=== PATIENT | female | born 2000 | race Caucasian/White ===

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

== ENCOUNTER 2019-03-02 20:31 | Emergency (ER) | payer SELFPAY ==
[~2019-03-02] VITALS: Ht 149.8 cm; Wt 70.0 kg
[~2019-03-02 20:31] MED LIST changes: +ACHD5005 PO; -HYDR-3812 PO
[2019-03-02] MEDS ORDERED: NF-CIPDEC OT (21:10)
[2019-03-02] MEDS ORDERED: CEFP500T4 PO (21:10)
--- NOTE | 2019-03-02 21:11 | ED EENT ---
History of Present Illness General Chief Complaint: Ear Problems Stated Complaint: EARACHE Nursing Triage Note: C/O EARACHE SINCE YESTERDAY, "WAS REALLY BAD LAST NIGHT". TOOK IBUPROFEN FOR PAIN Allergies and Home Medications Allergies Uncoded Allergies: CONTRAST DYE (Adverse Reaction, Unknown, 01/06/16) reported by family on EMS scene ? allergy Home Medications Ferrous Sulfate 325 Mg Tablet, 325 MG PO DAILY, (Reported) Hydrocodone Bit/Acetaminophen 1 Each Tablet, 1 TAB PO Q4H PRN for PAIN-MODERATE Prescribed by: FRANCISCO MENSAH on 10/24/16 0741 Ibuprofen 600 Mg Tablet, 600 MG PO Q6H PRN for CRAMPS Prescribed by: FRANCISCO MENSAH on 10/24/16 0741 Past [place]-Rl[place]-Ww[place]xe Hx Patient Social History Alcohol Use: Denies Use Recreational Drug Use: Yes Drug of Choice: MARIJUANA Type Used: Cigarettes Former Smoker, Quit: Dec 22, 2015 2nd Hand Smoke Exposure: No Recent Foreign Travel: No Contact w/Someone Who Travel: No Recent Infectious Disease Expo: No Recent Hopitalizations: No Physical Abuse: No Sexual Abuse: No Mistreated: No Fear: No Immunizations Up To Date Date of Influenza Vaccine: Feb 13, 2016 Seasonal Allergies Seasonal Allergies: No Past Medical History Surgeries: Yes Adenoidectomy, Tonsillectomy Respiratory: No Cardiac: Yes (Hx of murmur) Neurological: Yes (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 started with ) Last Menstrual Period: Feb 14, 2019 Reproductive Disorders: No Female Reproductive Disorders: Denies Sexually Transmitted Disease: No HIV/AIDS: No Genitourinary: No Gastrointestinal: No Musculoskeletal: No Endocrine: No HEENT: Yes ("lazy eye") Loss of Vision: Denies Hearing Impairment: Denies Cancer: Yes Skin Did You Recieve Any Treatments: Yes What Type of Treatment Did You: Surgical Intervention HAD 3 MOLES REMOVED Psychosocial: No Integumentary: No Blood Disorders: No Adverse Reaction/Blood Tranf: No Family Medical History Alcoholism (Mother and Father) Asthma (Grandfather and grandmother) Cervical cancer (Mother) FH: hyperthyroidism (Mother) FH: skin cancer (Father) No Pertinent Family Hx Physical Exam Vital Signs Vital Signs - First Documented 03/02/19 20:41 Temp 37.2 Pulse 94 Resp 18 B/P (MAP) 113/75 (88) Pulse Ox 99 Height, Weight, BMI Height: 4'11.00" Weight: 120lbs. 0.0oz. 54.175398ja; 31.00 BMI Method:Stated Progress/Results/Core Measures Results/Orders My Orders Orders - SEVEN TRAN DO Cefdinir Capsule (Omnicef Capsule) (03/02/19 21:15) Vital Signs/I&O 03/02/19 20:41 Temp 37.2 Pulse 94 Resp 18 B/P (MAP) 113/75 (88) Pulse Ox 99 Blood Pressure Mean: 88 Departure Impression Primary Impression: Left otitis externa Disposition: HOME, SELF-CARE Condition: Stable Departure-Patient Inst. Referrals: [facility] Patient Instructions: Outer Ear Infection (DC) Add. Discharge Instructions: LEAVE EAR WICK IN PLACE--IT WILL FALL OUT ON IT'S OWN IN A FEW DAYS TYLENOL AND MOTRIN NEEDED FOR PAIN FOLLOW UP WITH [facility] IN 4-5 DAYS FOR RECHECK All discharge instructions reviewed with patient and/or family. Voiced understanding. Scripts Ciprofloxacin HCl/Dexameth (Ciprodex Otic Suspension) 7.5 Ml Soln 5 DROPS OT BID, #1 EA Prov: SEVEN TRAN DO 03/02/19 Cefprozil (Cefprozil) 500 Mg Tablet 500 MG PO BID, #20 TAB Prov: SEVEN TRAN DO 03/02/19 SEVEN TRAN DO Mar 02, 2019 21:10
[2019-03-02] MEDS ORDERED: CEFDINIR 300 MG (OMNICEF) CAP PO ONE (21:15)
[2019-03-02 21:49] VITALS: BP 113/75
== END 2019-03-02 21:51 | disposition home or self-care (01) ==
LOC: EDUNIT# 20:31 → ER 20:33
DX: H60.92 Unspecified otitis externa, left ear (principal); Z91.041 Radiographic dye allergy status; Z90.89 Acquired absence of other organs; Z85.828 Personal history of other malignant neoplasm of skin; Z80.49 Family history of malignant neoplasm of other genital organs; Z80.8 Family history of malignant neoplasm of other organs or systems
CPT/HCPCS: 99283